=== PATIENT | female | born 1955 | race Caucasian/White ===

== ENCOUNTER 2023-05-15 22:55 | Emergency (ER) | payer MEDICARE, BC ==
[~2023-05-15] VITALS: Ht 170.2 cm; Wt 61.2 kg
[2023-05-16 00:24] LABS: HEMATOCRIT 41.2 % (31.2-41.9); HEMOGLOBIN 13.7 g/dL (10.9-14.3); MEAN CORPUSCULAR HGB CONC 33 g/dL (32.3-35.6); WHITE BLOOD COUNT (AUTO) 5.8 K/uL (3.8-11.8)
[2023-05-16 00:47] LABS: ALANINE AMINOTRANSFERASE 57 U/L (14-59); ALBUMIN 3.8 g/dL (3.4-5.0); ALKALINE PHOSPHATASE 56 U/L (50-136); ASPARTATE AMINOTRANSFERASE 31 U/L (15-37); BILIRUBIN,TOTAL 0.3 mg/dL (0.2-1.0); CALCIUM 9.2 mg/dL (8.5-10.1); CARBON DIOXIDE 31 mmol/L (21-32); CHLORIDE 102 mmol/L (98-107); CREATININE 0.8 mg/dL (0.6-1.3); GLUCOSE 94 mg/dL (74-106); NT-PRO BNP 339 pg/mL (0-125); POTASSIUM 3.9 mmol/L (3.5-5.1); SODIUM SERUM 139 mmol/L (136-145); TOTAL PROTEIN, SERUM 7.1 g/dL (6.4-8.2); UREA NITROGEN, BLOOD 19 mg/dL (7-18)
[2023-05-16 01:00] LABS: BILIRUBIN,DIRECT < 0.1 mg/dL (0.0-0.2)
[2023-05-16 01:05] LABS: BASOPHILS % (AUTO) 0.6 % (0.0-2.0); EOSINOPHILS # (AUTO) 0.1 K/uL (0.0-0.7); EOSINOPHILS % (AUTO) 2.5 % (0.0-7.0); LYMPHOCYTES # (AUTO) 1.8 K/uL (0.8-4.8); LYMPHOCYTES % (AUTO) 31.5 % (20.5-51.5); MONOCYTES # (AUTO) 0.4 K/uL (0.1-1.30); NEUTROPHILS # (AUTO) 3.4 K/uL (1.8-8.9); NEUTROPHILS % (AUTO) 58.4 % (38.5-71.5); PLATELET COUNT (AUTO) 241 K/uL (179-408); RED BLOOD CELL COUNT(AUTO) 4.43 MIL/uL (3.63-4.92); RED CELL DISTRIBUTION WIDTH 13.6 % (12.3-17.7)
[2023-05-16 01:08] LABS: DIFFERENTIAL COMMENT 1
[2023-05-16] MEDS: ASPIRIN 81 MG TAB.CHEW PO ONE ×2 (02:45→03:00)
[2023-05-16] MEDS ORDERED: ASPIRIN 81 MG TAB.CHEW ONE (02:48)
[2023-05-16 10:04] VITALS: BP 135/72; TEMP 98.3; O2SAT 98
== END 2023-05-16 10:05 | disposition home or self-care (01) ==
LOC: ER 23:00
DX: I47.10 Supraventricular tachycardia, unspecified (principal); R55 Syncope and collapse; G43.909 Migraine, unspecified, not intractable, without status migrainosus; Z98.890 Other specified postprocedural states
CPT/HCPCS: 36415; 71045; 84484; 85025; 93005; A4606; A4663